=== PATIENT | male | born 1925 | race Caucasian/White ===

== ENCOUNTER 2017-04-24 14:23 | Outpatient (CLI) ==
--- NOTE | 2017-04-24 14:53 | DI ---
EXAM: Three views of the left shoulder HISTORY: Left shoulder mass. COMPARISON: Chest x-ray 03/02/2009 FINDINGS: There is no cortical irregularity or displaced fracture. There is narrowing and degenerati ve change of the glenohumeral joint with superior migration of the humeral head in the glenoid fossa. The acromioclavicular joint demonstrates osteophyte formation. Superior to the left acromioclavicu lar joint is soft tissue nodule. There is no internal calcifications or gas noted. The adjacent oss eous structures are normal. IMPRESSION: 1. Soft tissue nodules superior to the acromioclavicular joint is nonspecific and contains no calcif ications or gas. 2. Severe left shoulder degenerative disease.
== END 2017-04-24 14:24 | disposition home or self-care (01) ==
LOC: RAD 14:23
PROVIDERS: ATTEND Family Medicine
DX: R22.30 Localized swelling, mass and lump, unspecified upper limb (principal)